=== PATIENT | female | born 1995 | race African-American/Black ===

== ENCOUNTER 2020-06-21 13:26 | Emergency (ER) | payer MEDICAID ==
[~2020-06-21] VITALS: Ht 165.1 cm; Wt 63.0 kg
[2020-06-21 13:46] VITALS: BP_SYST 130
[2020-06-21 14:51] VITALS: BP_SYST 130
== END 2020-06-21 14:51 | disposition home or self-care (01) ==
LOC: SED 13:26
DX: M75.21 Bicipital tendinitis, right shoulder (principal)
CPT/HCPCS: 73030; 81025; 99283